=== PATIENT | male | born 1965 ===

== ENCOUNTER 2023-07-19 04:50 | Day surgery (SDC) | payer OTHER ==
[~2023-07-19] VITALS: Ht 180.3 cm; Wt 81.6 kg
[~2023-07-19 04:50] MED LIST: HORIZANT300 MG PO; MOBIC7.5 MG PO; ZESTRIL10 M1 PO
[2023-07-19] MEDS ORDERED: METRONIDAZOLE/SODIUM CHLORIDE 500 MG/100 ML PIGGYBACK IV ONE (06:25)
[2023-07-19] MEDS ORDERED: CEFTRIAXONE SODIUM 2,000 MG VIAL ONE (06:25)
[2023-07-19] MEDS ORDERED: DIBUCAINE 15 GM OINT..GM. TUBE ONE (07:19)
[2023-07-19] MEDS ORDERED: POVIDONE-IODINE 118 ML BOTT TOP ONE (07:19)
[2023-07-19] MEDS ORDERED: HEMOSTATIC MATRIX 1 KIT KIT TOP ONE ×2 (07:19→07:45)
[2023-07-19] MEDS ORDERED: CEFTRIAXONE SODIUM 2,000 MG in 0.9 % SODIUM CHLORIDE 50 ML IV ONE (07:45)
[2023-07-19] MEDS ORDERED: POVIDONE-IODINE 118 ML BOTT TP ONE (07:45)
[2023-07-19] MEDS ORDERED: METRONIDAZOLE/SODIUM CHLORIDE 200 ML IV ONE (07:45)
[2023-07-19] MEDS ORDERED: DIBUCAINE 30 GM TUBE RC ONE (07:45)
[2023-07-19] MEDS ORDERED: OXYC1TAB9 PO (08:21)
[2023-07-19] MEDS ORDERED: TAMSULOSIN HCL 0.4 MG CAP PO ONE ×2 (08:30→09:53)
== END 2023-07-19 13:45 | disposition home or self-care (01) ==
LOC: CIR.AMB 04:50
PROVIDERS: ATTEND Surgery
DX: K64.4 Residual hemorrhoidal skin tags (principal); K64.8 Other hemorrhoids; K62.5 Hemorrhage of anus and rectum; Z91.041 Radiographic dye allergy status